=== PATIENT | female | born 1960 | race Caucasian/White ===

== ENCOUNTER 2018-04-28 18:23 | Emergency (ER) | payer BC, MEDICARE ==
--- NOTE | 2018-04-28 21:22 | EDM.PDOC ---
ED HPI GENERAL MEDICAL PROBLEM - General Chief Complaint: General Stated Complaint: RE CK LIP INJURY Time Seen by Provider: 04/28/18 21:00 Source of Information: Reports: Patient, Old Records (recent ) History Limitations: Reports: No Limitations - History of Present Illness INITIAL COMMENTS - FREE TEXT/NARRATIVE: 57-year-old female presents for evaluation and treatment of injury to the right lip. Patient was seen in the ER on late Saturday night, early Saturday morning. Initial injury resulted when she was trying to avoid stepping on and ultimately tripped over her dog hitting her face on a bedpost.5 sutures were placed by with 5-0 Vicryl. Patient tolerated well. patient reports today she attempted to whip the area and appreciated pus from the laceration. States she whipped away a scab. She is concerned that she may have actually loosened the sutures or they may have fallen out. She denies any fevers, chills, nausea or vomiting. She has some swelling to the right side of her face. Right Upper Lip Pain Score (Numeric/FACES): 2 - Related Data Allergies Allergy/AdvReac Type Severity Reaction Status Date / Time No Known Allergies Allergy Verified 04/26/18 00:26 Home Meds: Home Meds Aspirin [Halfprin] 1 tab PO DAILY 04/26/18 [History] DULoxetine [Cymbalta] 60 mg PO BID 04/26/18 [History] Hydrocodone/Acetaminophen [Hydrocodon-Acetaminophn 10-325] 10.325 mg PO DAILY PRN 04/26/18 [History] Levothyroxine 1 tab PO DAILY 04/26/18 [History] Omeprazole 40 mg PO DAILY 04/26/18 [History] Simvastatin [Zocor] 20 mg PO BEDTIME 04/26/18 [History] Zolpidem Tartrate [Ambien] 10 mg PO BEDTIME 04/26/18 [History] buPROPion [Wellbutrin SR] 150 mg PO DAILY 04/26/18 [History] busPIRone [Buspar] 10 mg PO BID 04/26/18 [History] Past Medical History Other HEENT History: wears glassess Cardiovascular History: Reports: High Cholesterol Gastrointestinal History: Reports: GERD 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: Reports: Musculoskeletal History: Reports: Arthritis, Fracture, Fibromyalgia Psychiatric History: Reports: Depression Endocrine/Metabolic History: Reports: Hypothyroidism - Past Surgical History HEENT Surgical History: Reports: Cataract Surgery Female Surgical History: Reports: Hysterectomy Social & Family History - Tobacco Use Smoking Status *Q: Current Every Day Smoker Years of Tobacco use: 20 Packs/Tins Daily: 1 - Caffeine Use Caffeine Use: Reports: Coffee, Soda - Recreational Drug Use Recreational Drug Use: No ED ROS GENERAL - Review of Systems Review Of Systems: See Below Constitutional: Denies: Fever, Chills GI/Abdominal: Denies: Nausea, Vomiting Skin: Reports: Wound (right upper lip), Other (reports pus like discharge from the wound) ED EXAM, GENERAL - Physical Exam Exam: See Below Exam Limited By: No Limitations General Appearance: Alert, WD/WN, No Apparent Distress Nose: Normal Inspection. No: Nasal Deformity Throat/Mouth: Normal Inspection, Normal Voice, No Airway Compromise, Other ( healing laceration to the right inner lip; [address], slight swelling; no obvious discharge at this time) Respiratory/Chest: No Respiratory Distress Neurological: Alert, Oriented, Normal Cognition Psychiatric: Normal Affect, Normal Mood Skin Exam: Warm, Dry, Normal Color Course - Vital Signs Last Recorded V/S: Last Vital Signs Temp 98.5 F 04/28/18 18:35 Pulse 75 04/28/18 18:35 Resp 20 04/28/18 18:35 BP 136/82 04/28/18 18:35 Pulse Ox 97 04/28/18 18:35 - Orders/Labs/Meds Meds: Medications Discontinued Medications Generic Name Dose Route Start Last Admin Trade Name Freq PRN Reason Stop Dose Admin Fluconazole 150 mg 04/28/18 21:34 04/28/18 21:39 Diflucan PO 04/28/18 21:35 150 mg ONETIME ONE Administration Departure - Departure Time of Disposition: 21:20 Disposition: Home, Self-Care 01 Condition: Fair Clinical Impression: Laceration of lower lip, complicated - Discharge Information *PRESCRIPTION DRUG MONITORING PROGRAM REVIEWED*: No *COPY OF PRESCRIPTION DRUG MONITORING REPORT IN PATIENT AGA: No Instructions: Facial Laceration, [id number] Referrals: Mitzy Odonnell NP [Primary Care Provider] - Forms: ED Department Discharge Additional Instructions: Rx for Augmentin 875-125 twice a day 10 days given for instymeds. Take the Augmentin as prescribed. 1 tab twice a day for 10 days. take this medication with food. Recommend yogurt or probiotic to help reduce side effects of upset stomach, nausea and diarrhea. May take [id number] Tylenol or Motrin as needed for additional pain relief. Follow up with your primary care provider if symptoms do not improve much within one week. Sutures should dissolve on their own in about 2 weeks' time . May rinseyouer mouth with saltwater. Please return the ER if symptoms change or worsen.
[2018-04-28] MEDS ORDERED: Fluconazole 150 MG Tab PO ONE (21:34)
== END 2018-04-28 21:40 | disposition home or self-care (01) ==
LOC: JD.ED 18:23
DX: S01.511A Laceration without foreign body of lip, initial encounter (principal); W18.40XA Slipping, tripping and stumbling without falling, unspecified, initial encounter; F17.210 Nicotine dependence, cigarettes, uncomplicated
CPT/HCPCS: 99283; A9270